=== PATIENT | male | born 1985 | race Caucasian/White ===

== ENCOUNTER 2020-05-01 05:28 | Outpatient (RCR) | payer BC ==
[~2020-05-01] VITALS: Ht 182.9 cm; Wt 86.1 kg
[~2020-05-01 05:28] MED LIST: FLUO10TA PO; OMEP20TA7 PO; SMTR50T PO
[2020-05-05] MEDS ORDERED: PANT40TA2 PO (15:03)
== END 2020-05-01 12:04 | disposition home or self-care (01) ==
LOC: PREOP 05:28
PROVIDERS: ATTEND Surgery
DX: Z01.812 Encounter for preprocedural laboratory examination (principal); Z20.828 Contact with and (suspected) exposure to other viral communicable diseases
CPT/HCPCS: 87635

== ENCOUNTER 2020-05-05 11:35 | Day surgery (SDC) | payer BC ==
[~2020-05-05] VITALS: Ht 182.9 cm; Wt 86.1 kg
[2020-05-05] VITALS (8 sets, daily range): BP systolic 102–128; BP diastolic 57–90
[2020-05-05] MEDS ORDERED: LACTATED RINGERS 1,000 ML IV ONE ×2 (11:51→14:05)
[2020-05-05] MEDS ORDERED: LACTATED RINGERS 1,000 ML IV PRN (12:00)
[2020-05-05] MEDS ORDERED: HURRICAINE EXT TUBE (BENZOCAINE) XX PRN (12:00)
[2020-05-05] MEDS ORDERED: fentaNYL INJECTION 100 MCG/2 ML AMP ONE (12:30)
[2020-05-05] MEDS ORDERED: ONDANSETRON 4 MG/2 ML (SDV) Z0FRAN ONE (12:37)
[2020-05-05] MEDS ORDERED: ONDANSETRON 4 MG/2 ML (SDV) Z0FRAN IVP PRN (12:45)
--- NOTE | 2020-05-05 12:50 | Progress Note-Pre Operative ---
Pre-Operative Progress Note H&P Reviewed The H&P was reviewed, patient examined and no changes noted. Date Seen by Provider: May 05, 2020 Time Seen by Provider: 12:50 Date H&P Reviewed: May 05, 2020 Time H&P Reviewed: 12:50 Pre-Operative Diagnosis: gerd, chronic diarrhea SPENCER ROUSE DO May 05, 2020 12:50
[2020-05-05] MEDS ORDERED: MIDAZOLAM 2 MG/2 ML (VERSED) VIAL ONE (13:54)
[2020-05-05] MEDS ORDERED: PROPOFOL INJECTION 100 ML IV ONE (13:54)
[2020-05-05] MEDS ORDERED: HURRICAINE EXT TUBE (BENZOCAINE) ONE (13:57)
--- NOTE | 2020-05-05 15:02 | Progress Note-Post Operative ---
Post-Operative Progess Note Surgeon (s)/Advisory Application Developer (s) Surgeon SPENCER ROUSE DO Advisory Application Developer: na Pre-Operative Diagnosis gerd, chronic diarrhea Post-Operative Diagnosis hiatal hernia, gastritis, colon polyps Procedure & Operative Findings Date of Procedure 05/05/20 Procedure Performed/Findings egd c biopsies, colonoscopy with random cold biopsies and hot biopsy polypectomy x7 Anesthesia Type per LAST DIPPER Estimated Blood Loss Estimated blood loss (mL): none Specimens/Packing Specimens Removed antrum, body of stomach, GE junction, random colon biopsies , sigmoid colon polyp biopsies x7 SPENCER ROUSE DO May 05, 2020 15:02
[2020-05-05] MEDS ORDERED: PANT40TA2 PO (15:03)
--- NOTE | 2020-05-05 15:03 | Discharge Inst-Simple/Standard ---
Discharge Inst-Standard Patient Instructions/Follow Up Plan of Care/Instructions/FU: 2 weeks Aga Activity as Tolerated: Yes Discharge Diet: Regular Diet SPENCER ROUSE DO May 05, 2020 15:03
--- NOTE | 2020-05-05 17:44 | OPERATIVE REPORT ---
DATE OF SERVICE: 05/05/2020 PREOPERATIVE DIAGNOSES: Gastroesophageal reflux disease, chronic diarrhea. POSTOPERATIVE DIAGNOSES: Hiatal hernia, gastritis, colon polyps. PROCEDURE: EGD with biopsies, colonoscopy with random cold biopsies and hot biopsy polypectomy x7. SURGEON: Spencer Yung DO ANESTHESIA: Per [employer] ENGINEER. ESTIMATED BLOOD LOSS: None. COMPLICATIONS: None. INDICATIONS: The patient is a 34-year-old male with chronic diarrhea and GERD symptoms. He understands risks and benefits of procedure and wished to proceed with procedure. Consent was signed in the chart. DESCRIPTION OF PROCEDURE: The patient was taken to the endoscopy suite, placed in left lateral recumbent position. Timeout was performed. Scope was inserted in mouth, down the esophagus, stomach and into the duodenum without difficulty. There were no polyps, masses or ulcerations within the duodenum. Scope was slowly retracted back into the stomach where it was further insufflated. Changes of gastritis were present. Biopsy of the antrum and body were obtained. Scope was retroflexed noting a small hiatal hernia, no other pathology noted. Scope was returned to its normal position, slowly withdrawn to distal esophagus. Biopsy of the GE junction was obtained. Scope was then slowly retracted back to completely remove noting no other pathology. Digital rectal exam was performed. There were no palpable polyps, masses or ulcerations. Scope was inserted in the rectum, advanced all the way to cecum with minimal difficulty. Prep was adequate. Scope was then slowly retracted back, random cold biopsies were obtained. Scope was being retracted back. There were no polyps, masses or ulcerations in the cecum, ascending, transverse, descending colon. Prior to retracting, the scope was inserted through the ileocecal valve, which had normal appearance. In the sigmoid colon, there are multiple polyps present, which hot biopsy polypectomy was performed. A total of were performed. Scope was then continuously retracted back until in the rectum where it was also retroflexed noting no other pathology. Scope was returned to its normal position, slowly withdrawn until completely removed. The patient tolerated procedure well without any complications and taken to recovery room in stable condition. RECOMMENDATIONS: The patient will stop omeprazole and start Protonix 40 mg daily. We will follow up on pathology. Due to the number of polyps and a short segment of the area would recommend a flexible sigmoidoscopy in approximately 6 months to reevaluate the area and make sure everything has been eradicated. Any issues before that be seen at that time. Further recommendations pending pathology results. Job ID: [id number] DocumentID: [id number] Dictated Date: 05/05/2020 15:07:08 Sld Educational Aide Date: 05/05/2020 17:43:02 Dictated By: SPENCER YUNG DO
== END 2020-05-05 16:00 | disposition home or self-care (01) ==
LOC: ENDO 11:35
PROVIDERS: ATTEND Surgery
DX: D12.5 Benign neoplasm of sigmoid colon (principal); K29.50 Unspecified chronic gastritis without bleeding; K21.00 Gastro-esophageal reflux disease with esophagitis, without bleeding; K52.9 Noninfective gastroenteritis and colitis, unspecified; K44.9 Diaphragmatic hernia without obstruction or gangrene; F17.210 Nicotine dependence, cigarettes, uncomplicated; Z82.49 Family history of ischemic heart disease and other diseases of the circulatory system
CPT/HCPCS: 88305

== ENCOUNTER 2020-11-24 05:43 | Outpatient (CLI) | payer BC ==
[~2020-11-24] VITALS: Ht 183 cm; Wt 92.3 kg
[~2020-11-24 05:43] MED LIST changes: +PANT40TA2 PO
== END 2020-11-24 15:16 | disposition home or self-care (01) ==
LOC: PREOP 05:43
PROVIDERS: ATTEND Surgery
DX: Z01.818 Encounter for other preprocedural examination (principal)

== ENCOUNTER 2020-12-01 08:24 | Day surgery (SDC) | payer BC ==
[~2020-12-01] VITALS: Ht 182.9 cm; Wt 92.3 kg
[2020-12-01] VITALS (7 sets, daily range): BP systolic 106–124; BP diastolic 53–62
[~2020-12-01 08:24] MED LIST changes: +LACTATED RINGERS 1,000 ML IV ONE
[2020-12-01] MEDS ORDERED: LACTATED RINGERS 1,000 ML IV STA (08:32)
--- NOTE | 2020-12-01 08:47 | Progress Note-Pre Operative ---
Pre-Operative Progress Note H&P Reviewed The H&P was reviewed, patient examined and no changes noted. Date Seen by Provider: Dec 01, 2020 Time Seen by Provider: 08:46 Date H&P Reviewed: Dec 01, 2020 Time H&P Reviewed: 08:46 Pre-Operative Diagnosis: hx polyps SPENCER ROUSE DO Dec 01, 2020 08:47
[2020-12-01] MEDS ORDERED: OMEP20TA33 PO (08:50)
[2020-12-01] MEDS ORDERED: DICY20TA10 PO (08:50)
[2020-12-01] MEDS ORDERED: MIDAZOLAM 2 MG/2 ML (VERSED) VIAL ONE (09:12)
[2020-12-01] MEDS ORDERED: PROPOFOL INJECTION 50 ML IV ONE ×2 (09:12→09:31)
--- NOTE | 2020-12-01 10:01 | Progress Note-Post Operative ---
Post-Operative Progess Note Surgeon (s)/Sales Person (s) Surgeon SPENCER ORUSE DO Sales Person: na Pre-Operative Diagnosis hx polyps Post-Operative Diagnosis colon polyps Procedure & Operative Findings Date of Procedure 12/01/20 Procedure Performed/Findings colonoscopy c hot bx polypectomy x 2 Anesthesia Type per crisis clinician Estimated Blood Loss Estimated blood loss (mL): none Specimens/Packing Specimens Removed sigmoid and rectal polyp SPENCER ROUSE DO Dec 01, 2020 10:01
--- NOTE | 2020-12-01 13:44 | OPERATIVE REPORT ---
DATE OF SERVICE: 12/01/2020 PREOPERATIVE DIAGNOSIS: History of polyps. POSTOPERATIVE DIAGNOSIS: Colon polyps. PROCEDURES PERFORMED: Colonoscopy with hot biopsy polypectomy x2. SURGEON: Spencer Yung DO. ANESTHESIA: Per SEC[employer]ER. ESTIMATED BLOOD LOSS: None. COMPLICATIONS: None. INDICATIONS FOR PROCEDURE: The patient is a 35-year-old male with history of polyps, understands the risks and benefits of the procedure and wished to proceed with the procedure. Consent was signed in the chart. DESCRIPTION OF PROCEDURE: The patient was taken to the endoscopy suite and placed in a left lateral recumbent position. Timeout was performed. Digital rectal exam was performed. There were no palpable polyps, masses or ulcerations. Digital rectal exam was performed. There were no palpable polyps, masses or ulcerations. Scope was inserted in the rectum and advanced all the way to cecum with minimal difficulty. The ileocecal valve was intubated. The small bowel had normal appearance. Scope was then retracted back into the colon. Cecum had no polyps, masses or ulcerations. Prep was adequate. Scope was then slowly retracted back. No polyps, masses or ulcerations in the ascending colon, transverse colon, and descending colon. In the sigmoid colon, a small polyp was present, which hot biopsy polypectomy was performed. Scope was then continuously retracted back into the rectum, where there was another small polyp, where a hot biopsy polypectomy was performed. Scope was retroflexed noting no other pathology. Scope was returned to its normal position, slowly withdrawn until completely removed. The patient tolerated the procedure well without any complications and taken to the recovery room in stable condition. RECOMMENDATIONS: I would recommend repeat colonoscopy in 3 to 5 years. Any issues before that be seen at that time. The patient will need to follow up in the office to discuss pathology results. Job ID: [id number] DocumentID: [id number] Dictated Date: 12/01/2020 10:03:42 Cooper Helper Date: 12/01/2020 13:44:12 Dictated By: SPENCER YUNG DO
--- NOTE | 2020-12-01 14:20 | Anesthesia-General Post-Op ---
MAC Patient Condition Mental Status/LOC: Same as Preop Cardiovascular: Satisfactory Nausea/Vomiting: Absent Respiratory: Satisfactory Pain: Controlled Complications: Absent Post Op Complications Complications None Follow Up Care/Instructions Patient Instructions None needed. Anesthesiology Discharge Order Discharge Order Patient is doing well, no complaints, stable vital signs, no apparent adverse anesthesia problems. No complications reported per nursing. MARÍA PENNY CRNA Dec 01, 2020 14:20
== END 2020-12-01 10:57 | disposition home or self-care (01) ==
LOC: ENDO 08:24
PROVIDERS: ATTEND Surgery
DX: K63.5 Polyp of colon (principal); K62.1 Rectal polyp; K21.9 Gastro-esophageal reflux disease without esophagitis; I10 Essential (primary) hypertension; G43.909 Migraine, unspecified, not intractable, without status migrainosus; F17.210 Nicotine dependence, cigarettes, uncomplicated; Z79.51 Long term (current) use of inhaled steroids; Z79.899 Other long term (current) drug therapy
CPT/HCPCS: 88305